=== PATIENT | female | born 1945 | race Caucasian/White ===

== ENCOUNTER → 2016-08-30 | Outpatient (REF) | payer OTHER ==
[2016-08-30 12:45] LABS: ALBUMIN 4.2 GM/DL (3.2-5.2); ALBUMIN/GLOBULIN RATIO 2.21 (1.00-1.93); ALKALINE PHOSPHATASE 59 U/L (45-117); ALT/SGPT 24 U/L (12-78); ANION GAP 6 MEQ/L (8-16); AST/SGOT 15 U/L (15-37); BILIRUBIN,TOTAL 0.5 MG/DL (0.2-1.0); BLOOD UREA NITROGEN 19 MG/DL (7-18); CALCIUM LEVEL 9.1 MG/DL (8.8-10.2); CARBON DIOXIDE LEVEL 30 MEQ/L (21-32); CHLORIDE LEVEL 108 MEQ/L (98-107); CHOLESTEROL LEVEL 196 MG/DL (<200); GLOMERULAR FILTRATION RATE > 60.0 (>45); GLUCOSE, FASTING 102 MG/DL (80-110); POTASSIUM SERUM 4.3 MEQ/L (3.5-5.1); SODIUM LEVEL 144 MEQ/L (136-145); TOTAL PROTEIN 6.1 GM/DL (6.4-8.2); TRIGLYCERIDES LEVEL 94 MG/DL (<150)
== END ==
LOC: M SFHCPLAZ 09:48
PROVIDERS: ATTEND Internal Medicine
DX: I10 Essential (primary) hypertension (principal); E78.00 Pure hypercholesterolemia, unspecified

== ENCOUNTER → 2016-10-23 | Outpatient (CLI) | payer OTHER ==
[~2016-10-23] MED LIST: ALEV220T26 PO; AMLO5TAB2 PO; ATOR1TAB19 PO; BIOT1CAP2 PO; CO Q200C PO; CO Q400C2 PO; COLA100C3 PO; LOSA100T36 PO; primrose PO
[2016-10-23 11:07] LABS: MEAN CORPUSCULAR HEMOGLOBIN 33.1 pg (27.0-33.0); MEAN CORPUSCULAR VOLUME 94.6 fl (80.0-96.0); RED CELL DISTRIBUTION WIDTH 12.5 % (11.5-14.5); WHITE BLOOD COUNT 8.6 K/mm3 (4.0-10.0)
[2016-10-23 11:31] LABS: INR 0.87
[2016-10-23 12:44] LABS: ALBUMIN 4.3 GM/DL (3.2-5.2); ALBUMIN/GLOBULIN RATIO 1.95 (1.00-1.93); ALKALINE PHOSPHATASE 63 U/L (45-117); ALT/SGPT 33 U/L (12-78); ANION GAP 9 MEQ/L (8-16); AST/SGOT 22 U/L (15-37); BILIRUBIN,TOTAL 0.4 MG/DL (0.2-1.0); BLOOD UREA NITROGEN 20 MG/DL (7-18); CALCIUM LEVEL 9.4 MG/DL (8.8-10.2); CARBON DIOXIDE LEVEL 26 MEQ/L (21-32); CHLORIDE LEVEL 107 MEQ/L (98-107); CREATININE FOR GFR 0.66 MG/DL (0.55-1.02); GLOMERULAR FILTRATION RATE > 60.0 (>45); GLUCOSE, FASTING 109 MG/DL (80-110); POTASSIUM SERUM 4.3 MEQ/L (3.5-5.1); SODIUM LEVEL 142 MEQ/L (136-145); TOTAL PROTEIN 6.5 GM/DL (6.4-8.2)
--- NOTE | 2016-10-24 02:31 | REP ---
Clinical: Arthritis . Comparison: None . Technique: PA and lateral. Findings: The mediastinum and cardiac silhouette are normal. The lung ruth are clear and without acute consolidation, effusion, or pneumothorax. The skeletal structures are intact and normal. Impression: 1. No acute cardiopulmonary process. Signed by Evin Palacios MD 10/24/2016 02:22 A
--- NOTE | 2016-10-24 07:08 | ECGEPIP ---
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
== END ==
LOC: M ADMPAT 09:26
PROVIDERS: ATTEND Orthopaedic Surgery
DX: M12.9 Arthropathy, unspecified (principal); Z01.818 Encounter for other preprocedural examination; Z79.899 Other long term (current) drug therapy

== ENCOUNTER 2016-11-06 05:45 | Inpatient (IN) | payer OTHER ==
[2016-10-23 10:36] VITALS: BP 152/68
--- NOTE | 2016-11-02 13:26 | HPE ---
DATE OF ADMISSION: 11/06/2016 ATTENDING PHYSICIAN: Dr. Stalin Hsieh CHIEF COMPLAINT: Right knee pain and stiffness. HISTORY: This a pleasant, 71-year-old female patient with progressively worsening right knee pain and stiffness. She has failed to improve with conservative management. She has pain with weightbearing activities and activities of daily living. She has elected for surgery for continued symptoms. She has consented for right total knee arthroplasty by Dr. Hsieh. X-rays notable for end-stage degenerative changes in the right knee. ALLERGIES: BENAZEPRIL. CURRENT MEDICATIONS: Include: - Advil 200 mg 1 tablet twice a day (She will discontinue that 5 days prior to surgery.) - Norvasc 5 mg 1 tablet once per day - losartan 100 mg 1 tablet once per day - atorvastatin 20 mg 1 tablet once per day - Biotin 1 mg 1 tablet once per day MEDICAL HISTORY: Includes hypertension, elevated cholesterol, elevated fasting glucose. PRIOR SURGERIES: Include tonsils and adenoids removed, appendectomy, (C) section, colonoscopy. SOCIAL HISTORY: She does not smoke. She occasionally uses alcohol. She is retired. FAMILY HISTORY: Noncontributory. REVIEW OF SYSTEMS: Denies fever or chills. Denies chest pain, shortness breath or cough. Denies difficulty breathing. Denies abdominal pain. Denies nausea or vomiting. Has persistent pain in her right knee with weightbearing activities. Exam today reveals a well-nourished, well-developed, alert female patient. She walks with a slight limping gait favoring her right side. Examination of the right knee reveals skin to be intact. Tenderness mainly medially. Patellar grind is irritable. Range of motion is near full with irritability at the extreme range of motion. No irritability with hip range of motion. The right leg is intact to light touch. Neck is supple without adenopathy or jugular venous distention (JVD). Lungs are clear to auscultation, without rales or wheeze. Heart: Regular rate and rhythm. Abdomen: Bowel sounds are present. Current vital signs: Height 62 inches, weight 152 pounds. Temperature 98.8, pulse 72, respirations 16, blood pressure 142/82. IMPRESSION: Symptomatic osteoarthritis of her right knee. LABORATORY DATA: Sedimentation rate of 5. Urinalysis within normal limits. Nasal cultures normal trever. Urine culture no growth. PT 11.9, INR 0.87. Glucose 109, BUN 28, creatinine 0.66, potassium 4.3, sodium 142. WBC count 8.6, red blood cell count 4.1, hemoglobin 13.6, hematocrit 38.8. Chest x-ray: No acute cardiopulmonary process noted. EKG: Sinus rhythm with occasional PVC. Urinalysis within normal limits. PLAN: She has consented for right total knee arthroplasty by Dr. Hsieh. LUCY
[~2016-11-06] VITALS: Ht 157.5 cm; Wt 70.3 kg
[2016-11-06] VITALS (7 sets, daily range): BP systolic 118–181; BP diastolic 59–86
[2016-11-06] MEDS ORDERED: ACETAMINOPHEN 500 MG TAB PO ONE (06:00)
[2016-11-06] MEDS ORDERED: LR 1,000 ML IV SCH ×3 (06:00→11:15)
[2016-11-06] MEDS ORDERED: TRANEXAMIC ACID 100 MG/ML 10ML VIAL As Ordered ONE (06:12)
[2016-11-06] MEDS ORDERED: ceFAZolin 1GM INJ (J0690) As Ordered ONE (06:12)
[2016-11-06] MEDS ORDERED: BUPIVACAINE LIPOSOME/PF 1.3% 20 ML VIAL (13.3MG/ML)(EXPAREL) As Ordered ONE (06:13)
[2016-11-06] MEDS ORDERED: EPINEPHrine INJ 1 MG/ML 1ML AMP As Ordered ONE (06:13)
[2016-11-06] MEDS: MIDAZOLAM INJ 2 MG/2 ML VIAL (J2250) IV SCH ×2 (07:15→07:19)
[2016-11-06] MEDS ORDERED: fentaNYL 100 MCG/2 ML INJECTION (J3010) As Ordered ONE (07:30)
[2016-11-06] MEDS ORDERED: fentaNYL 100 MCG/2 ML INJECTION (J3010) IV ONE ×2 (07:30→07:45)
[2016-11-06] MEDS ORDERED: MIDAZOLAM INJ 2 MG/2 ML VIAL (J2250) As Ordered ONE ×2 (07:30→07:46)
[2016-11-06] MEDS ORDERED: MIDAZOLAM INJ 2 MG/2 ML VIAL (J2250) IV SCH (07:45)
[2016-11-06] MEDS ORDERED: PROPOFOL 200 MG/20 ML VIAL As Ordered ONE (07:46)
[2016-11-06] MEDS ORDERED: ePHEDrine SULFATE 25 MG/5 ML(5MG/ML) SYRINGE As Ordered ONE (08:23)
[2016-11-06] MEDS ORDERED: NALOXONE INJ 0.4 MG/1 ML VIAL (J2310) IV PRN (09:45)
[2016-11-06] MEDS ORDERED: diphenhydrAMINE INJ 50MG/ML VIAL (J1200) IV PRN (09:45)
[2016-11-06] MEDS ORDERED: NALBUPHINE HCL 10 MG/ML AMP (J2300) IV PRN (09:45)
[2016-11-06] MEDS ORDERED: EPIDURAL/PCA KEYS XX PRN (09:45)
[2016-11-06] MEDS ORDERED: ONDANSETRON 4MG/2ML VIAL (J2405) IV PRN ×2 (09:45→10:15)
[2016-11-06] MEDS ORDERED: MORPHINE 1MG/ML IN 0.9% NACL 100ML IV BAG IV PRN (09:45)
[2016-11-06] MEDS ORDERED: ACETAMINOPHEN TAB 650MG DOSE (2X325MG) PO PRN ×2 (10:00→11:15)
[2016-11-06] MEDS ORDERED: FLEET ENEMA PR PRN ×2 (10:00→11:15)
[2016-11-06] MEDS ORDERED: fentaNYL 100 MCG/2 ML INJECTION (J3010) IV PRN (10:15)
[2016-11-06] MEDS: LR 1,000 ML IV SCH ×2 (10:19→23:52)
[2016-11-06] MEDS ORDERED: ROPIvacaine 0.5% 30 ML INJECTION (J2795) ONE (12:03)
[2016-11-06] MEDS ORDERED: dexameTHASONE 10 MG/1 ML VIAL PRES.FREE (J1100) ONE (12:03)
--- NOTE | 2016-11-06 16:33 | IPNPDOC ---
Subjective Date Seen The patient was seen on 11/06/16. Subjective Chief Complaint/HPI The patient is a 71-year-old female admitted with a reason for visit of Right Knee Arthritis. Events since last encounter Feeling well post operatively, no complaints, pain controlled Constitutional: Denies: Chills, Fever Pulmonary: Denies: Dyspnea, Cough Cardiovascular: Denies: Chest Pain Gastrointestinal: Denies: Nausea, Vomiting, Abdominal Pain Objective Physical Examination General Exam: Positive: Alert, Cooperative, No Acute Distress Eye Exam: Negative: Sclera icteric ENT Exam: Positive: Mucous membr. moist/pink Chest Exam: Positive: Diminished, Negative: Rales, Rhonchi, Wheezing Heart Exam: Positive: Rate Normal, Regular Rhythm, Normal S1, Normal S2 Abdomen Exam: Positive: BS Hypoactive, Soft, Negative: Tenderness Assessment /Plan Problems (1) Osteoarthritis Problem Text: POD#0 knee replacement pain management, gi regimen, activity, dvt prophylaxis per ortho (2) HTN (hypertension) Problem Text: BP elevated likely secondary to pain continue norvasc hold arb (3) Hypercholesteremia Problem Text: continue statin Plan/VTE VTE Prophylaxis Ordered?: Yes VS, I&O, 24H, Fishbone Vital Signs/I&O Vital Signs Date Time Temp Pulse Resp B/P (MAP) Pulse Ox O2 Delivery O2 Flow Rate FiO2 11/06/16 14:30 97.3 72 16 164/76 (105) 98 Nasal Cannula 2.0 CLEM WALTER MD Nov 06, 2016 16:33
[2016-11-06] MEDS ORDERED: WARFARIN SOD 5 MG TAB PO SCH ×2 (17:00)
[2016-11-06] MEDS ORDERED: ONDANSETRON 4MG/2ML VIAL (J2405) IV ONE (21:00)
--- NOTE | 2016-11-06 23:17 | RO ---
DATE OF PROCEDURE: 11/06/2016 PREPROCEDURE DIAGNOSIS: Right knee degenerative arthritis. POSTPROCEDURE DIAGNOSIS: Right knee degenerative arthritis. PROCEDURE: Right total knee arthroplasty using a size 2.5 femoral component and a size 2 tibial tray with a 10 mm rotating platform polyethylene insert and a 32 mm polyethylene button. All components were cemented. Prosthesis was made by [employer]; it was a PFC knee. It was a cruciate-retaining femoral component. SURGEON: Dr. Cristina Hsieh TERMITE CONTROL REPRESENTATIVE: Mr. Isaias Jessica ANESTHESIA: Spinal with right femoral nerve block and Exparel long-acting Marcaine. COMPLICATIONS: None. ESTIMATED BLOOD LOSS: Less than 20 mL. SPECIMENS: Joint surface. DESCRIPTION OF PROCEDURE: Antibiotics were given intravenously preoperatively, then successful spinal anesthetic was induced and a right femoral nerve block was induced. Tourniquet was placed on the right upper thigh and not inflated. The right lower extremity was prepped and draped in the usual sterile fashion. Then, the leg was elevated, then after appropriate time out and we confirmed we were doing a right total knee arthroplasty, the tourniquet was inflated. A longitudinal incision was made for a medial parapatellar approach to the knee. Bovie cautery was used to coagulate crossing vessels. Subperiosteal dissection around the proximal and medial portion of the tibia was performed and then we released the anterior horn of the lateral meniscus. Subperiosteal dissection around the proximal and lateral portion of the tibial plateau was provided and the patella was easily everted and the knee was flexed. Drill was placed down the center of the femoral canal, followed by the intramedullary ted and with a distal femoral cutting jig set at 5-degree valgus cut for a right knee at 10 mm resection level. It was pinned into position, distal femoral cut performed. AP sizing jig measured right on the money at a 2.5 size femoral component. The 3-degree external rotation block was applied, the 4-in-1 block applied, then we performed the anterior and posterior Chamfer cuts, taking great care to protect the surrounding soft tissues. We then exposed the proximal tibia. We used the extramedullary guide to estimate being parallel to the mechanical axis of the tibia. We referenced off the medial tibial condyle at 4 mm resection level. We then pinned the block into position and then used the extramedullary ted to ensure that we appeared to be parallel to the mechanical axis of the tibia. We then performed the proximal tibia osteotomy. We then placed the lamina mixing machine operator medially and performed a completion lateral meniscectomy, debridement of the posterolateral osteophytes. Then, we placed the lamina mixing machine operator laterally and performed a completion medial meniscectomy, debridement of the posteromedial osteophytes. The spacer blocks were then placed and a 10 block fit nicely with good balance to varus/valgus stress testing, both in flexion and in extension and the flexion and extension spaces seemed to be quite symmetric, thus we felt this was the appropriate size components to use. We then exposed the proximal tibia, sized for a size 2 tray and that was pinned into position followed by the reamer and the broach. Polyethylene was placed, followed by the femoral component and then we brought the knee into extension. Again, she had very good stability. We everted the patella, performed a patellar osteotomy, sized for a 32 mm button and the lug holes were drilled. The patellofemoral tracking with the trials in place was anatomic. We then drilled the lug holes for the femur, removed all of the trial components, prepared the bony surfaces for cementing while my nutritional assistant, Mr. Jessica, mixed the cement on the back table. We copiously irrigated. Mr. Jessica was also critical to the success of the procedure by helping in many other ways to manipulate the knee with appropriate soft tissue retraction, helped to close the wound, helped me to prepare the patient for surgery. Once all the bony surfaces were thoroughly dried, we cemented the tibial tray, removed the excess cement, placed the polyethylene, then cemented the femoral component, removed excess cement, brought the knee into extension and cemented the patellar button, removed excess cement, held this position until the cement had hardened. The Exparel long-acting anesthetic was placed in the subperiosteal tissues around the femur and the tibia, as well as around the patella and then the edges of the quadriceps tendon and the joint capsule. We applied this while we were waiting for the cement to harden. We also irrigated the knee while we were waiting for the cement to harden and then also instilled the tranexamic acid. The capsule was then closed with a combination of #1 PDS sutures, then a running double-armed Stratafix. Then, we released the tourniquet, irrigated it, then closed the deep subdermal tissues with interrupted #2-0 PDS sutures, skin was closed with fabiano, covered by Adaptic dry sterile bulky dressing. The tourniquet was then released, and she was then transferred to the recovery room in stable condition. There were no intraoperative complications.
[2016-11-07 06:00] VITALS: BP 160/77
[2016-11-07] MEDS ORDERED: PERCOCET 5MG/325MG TAB PO PRN (07:00)
[2016-11-07 07:34] LABS: MEAN CORPUSCULAR HEMOGLOBIN 32.5 pg (27.0-33.0); MEAN CORPUSCULAR HGB CONC 33.6 g/dl (32.0-36.5); MEAN CORPUSCULAR VOLUME 96.5 fl (80.0-96.0); RED CELL DISTRIBUTION WIDTH 12.9 % (11.5-14.5); WHITE BLOOD COUNT 17.3 K/mm3 (4.0-10.0)
[2016-11-07 07:41] LABS: INR 1.08
[2016-11-07] MEDS: SENOKOT S TAB PO SCH ×2 (08:45→21:39)
[2016-11-07] MEDS: LOSARTAN 50 MG TAB PO SCH (08:45)
[2016-11-07] MEDS: MOM 30ML SUSPENSION UDC PO SCH (08:45)
[2016-11-07] MEDS: ATORVASTATIN 20 MG TAB PO SCH (08:46)
[2016-11-07] MEDS: amLODIPine 5 MG TAB PO SCH (08:46)
[2016-11-07] MEDS: MIRALAX *UNIT DOSE* 17GM PACKET PO SCH (08:47)
[2016-11-07] MEDS: PERCOCET 5MG/325MG TAB PO PRN ×3 (08:48→18:04)
[2016-11-07 10:00] VITALS: BP 173/79
--- NOTE | 2016-11-07 11:19 | REP ---
Right knee two views AP and lateral projections: There are no comparison studies. There is a total hip arthroplasty with the components tightly applied and in satisfactory positions alignment in both projections. Skin fabiano are incidentally noted. Signed by Jeremy Freedman MD 11/07/2016 11:10 A
[2016-11-07] MEDS: ONDANSETRON 4 MG TAB (S0181) PO PRN ×2 (12:35→18:04)
[2016-11-07 14:00] VITALS: BP 177/81
[2016-11-07] MEDS ORDERED: WARFARIN SOD 5 MG TAB PO SCH (17:00)
[2016-11-07 22:00] VITALS: BP 160/68
[2016-11-07 23:33] VITALS: O2SAT 96
[2016-11-08] MEDS: PERCOCET 5MG/325MG TAB PO PRN ×3 (05:23→09:28)
[2016-11-08 06:00] VITALS: BP 170/72
[2016-11-08 07:12] LABS: INR 1.65; MEAN CORPUSCULAR HEMOGLOBIN 32.3 pg (27.0-33.0); MEAN CORPUSCULAR HGB CONC 33.7 g/dl (32.0-36.5); RED CELL DISTRIBUTION WIDTH 12.9 % (11.5-14.5); WHITE BLOOD COUNT 15.3 K/mm3 (4.0-10.0)
[2016-11-08] MEDS ORDERED: COUM2.5T11 PO (08:52)
[2016-11-08] MEDS ORDERED: ZOFR20TA PO (08:52)
[2016-11-08] MEDS ORDERED: PERC5TAB6 PO (08:52)
[2016-11-08] MEDS: SENOKOT S TAB PO SCH (09:00)
[2016-11-08] MEDS: LOSARTAN 50 MG TAB PO SCH (09:27)
[2016-11-08] MEDS: MIRALAX *UNIT DOSE* 17GM PACKET PO SCH (09:27)
[2016-11-08] MEDS: ATORVASTATIN 20 MG TAB PO SCH (09:27)
[2016-11-08] MEDS: MOM 30ML SUSPENSION UDC PO SCH (09:27)
[2016-11-08 09:28] VITALS: BP 170/72
[2016-11-08] MEDS: amLODIPine 5 MG TAB PO SCH (09:28)
--- NOTE | 2016-11-10 11:49 | DSES ---
DATE OF ADMISSION: 11/06/2016 DATE OF DISCHARGE: 11/08/2016 ATTENDING PHYSICIAN: Dr. Hsieh. ADMITTING DIAGNOSIS: Right knee degenerative arthritis. OTHER DIAGNOSES: Hypertension. Hyperlipidemia. Impaired fasting glucose. DISCHARGE DIAGNOSIS: Right knee degenerative arthritis status post right total knee arthroplasty. HISTORY OF PRESENT ILLNESS: Patient is a 71-year-old female with continuing right knee pain and stiffness. She continues with pain with any weight bearing activities and activities of daily living. She failed to improve with conservative measures so she has elevated for right total knee arthroplasty with Dr. Hsieh. OPERATION PERFORMED: Right total knee arthroplasty. HOSPITAL COURSE: The patient underwent a right total knee arthroplasty under spinal anesthesia which was uneventful. Her hospital course was without complication and she was up with physical therapy per their protocol, weight bearing as tolerated on the right lower extremity. Patient was discharged on oral pain medications and will resume her preoperative medications and diet. Instructions were for her to be weight bearing as tolerated. She will also use her thromboembolic deterrent stockings and take her Coumadin for 30 days postoperatively to present deep venous thrombosis. She will followup in our office in 12-14 days for wound check and staple removal. She is encouraged to contact our office sooner if there is any increased pain, drainage, bleeding, redness, numbness or tingling in her extremity, fever greater than 101 degrees or any other concerns. Please see medical record for additional details.
== END 2016-11-08 12:15 | disposition home health service (06) | DRG 470 ==
LOC: M OR 05:45 → M MS5PR 10:20
PROVIDERS: ADMIT Orthopaedic Surgery; ATTEND Orthopaedic Surgery
PROC: 0SRC0J9 Replacement of Right Knee Joint with Synthetic Substitute, Cemented, Open Approach (ICD-10-PCS; principal; 2016-11-06 07:30)
DX: M17.11 Unilateral primary osteoarthritis, right knee (principal); Z79.899 Other long term (current) drug therapy; I10 Essential (primary) hypertension; E78.00 Pure hypercholesterolemia, unspecified

== ENCOUNTER → 2017-09-04 | Outpatient (REF) | payer OTHER ==
[2017-09-04 12:40] LABS: ALBUMIN 4.3 GM/DL (3.2-5.2); ALBUMIN/GLOBULIN RATIO 1.95 (1.00-1.93); ALKALINE PHOSPHATASE 57 U/L (45-117); ALT/SGPT 21 U/L (12-78); ANION GAP 6 MEQ/L (8-16); AST/SGOT 17 U/L (7-37); BILIRUBIN,TOTAL 0.6 MG/DL (0.2-1.0); BLOOD UREA NITROGEN 18 MG/DL (7-18); CALCIUM LEVEL 9.2 MG/DL (8.8-10.2); CARBON DIOXIDE LEVEL 28 MEQ/L (21-32); CHLORIDE LEVEL 109 MEQ/L (98-107); CHOLESTEROL LEVEL 210 MG/DL (<200); CHOLESTEROL RISK RATIO 3.088 (<5); CREATININE FOR GFR 0.67 MG/DL (0.55-1.30); GLOMERULAR FILTRATION RATE > 60.0 (>39); GLUCOSE, FASTING 90 MG/DL (70-100); HDL CHOLESTEROL 68 MG/DL (>40); LDL CHOLESTEROL 116.4 MG/DL (<100); MAGNESIUM LEVEL 2.4 MG/DL (1.8-2.4); NON-HDL-C 142 MG/DL; POTASSIUM SERUM 4.3 MEQ/L (3.5-5.1); SODIUM LEVEL 143 MEQ/L (136-145); TOTAL PROTEIN 6.5 GM/DL (6.4-8.2); TRIGLYCERIDES LEVEL 128 MG/DL (<150)
[2017-09-04 13:04] LABS: MALB URINE SIEMENS 11.3 MG/L; MAU/CREAT RATIO 9.2 MCG/MG (0.0-30.0)
[2017-09-04 14:32] LABS: ESTIMATED AVERAGE GLUCOSE 111 MG/DL (60-110); HEMOGLOBIN A1c 5.5 %
== END ==
LOC: M SFHCPLAZ 07:54
DX: I10 Essential (primary) hypertension (principal); R73.01 Impaired fasting glucose; E78.00 Pure hypercholesterolemia, unspecified
CPT/HCPCS: 83735

== ENCOUNTER 2017-12-18 09:56 | Day surgery (SDC) | payer OTHER ==
[2017-12-18] MEDS: NS 1,000 ML IV (10:26)
[2017-12-18] MEDS ORDERED: LIDOCAINE 2% INJ 100 MG/5 ML SDV (FOR ANES.) As Ordered (11:46)
[2017-12-18] MEDS ORDERED: PROPOFOL 200 MG/20 ML VIAL As Ordered (11:46)
== END 2017-12-18 12:15 | disposition home or self-care (01) ==
LOC: M OPP 09:56
DX: Z12.11 Encounter for screening for malignant neoplasm of colon (principal); K64.0 First degree hemorrhoids; K57.30 Diverticulosis of large intestine without perforation or abscess without bleeding; I10 Essential (primary) hypertension; E78.5 Hyperlipidemia, unspecified; M19.90 Unspecified osteoarthritis, unspecified site; Z85.828 Personal history of other malignant neoplasm of skin; Z96.651 Presence of right artificial knee joint; Z87.891 Personal history of nicotine dependence; Z88.8 Allergy status to other drugs, medicaments and biological substances; Z91.048 Other nonmedicinal substance allergy status; Z79.899 Other long term (current) drug therapy; Z80.3 Family history of malignant neoplasm of breast
CPT/HCPCS: G0121

== ENCOUNTER → 2017-12-28 | Outpatient (CLI) | payer OTHER ==
[2017-12-28 09:32] LABS: HEMATOCRIT 40.2 % (36.0-47.0); HEMOGLOBIN 13.4 g/dl (12.0-15.5); MEAN CORPUSCULAR HEMOGLOBIN 31.7 pg (27.0-33.0); MEAN CORPUSCULAR HGB CONC 33.3 g/dl (32.0-36.5); PLATELET COUNT, AUTOMATED 244 10^3/uL (150-450); RED BLOOD COUNT 4.23 10^6/uL (4.00-5.40); RED CELL DISTRIBUTION WIDTH 13.2 % (11.5-14.5); WHITE BLOOD COUNT 9.2 10^3/uL (4.0-10.0)
[2017-12-28 09:41] LABS: INR 0.91; PROTHROMBIN TIME 12.3 SECONDS (12.1-14.4)
[2017-12-28 09:57] LABS: ALBUMIN 4.4 GM/DL (3.2-5.2); ALBUMIN/GLOBULIN RATIO 1.83 (1.00-1.93); ALKALINE PHOSPHATASE 60 U/L (45-117); ALT/SGPT 22 U/L (12-78); ANION GAP 7 MEQ/L (8-16); AST/SGOT 18 U/L (7-37); BILIRUBIN,TOTAL 0.4 MG/DL (0.2-1.0); BLOOD UREA NITROGEN 20 MG/DL (7-18); CALCIUM LEVEL 9.3 MG/DL (8.8-10.2); CARBON DIOXIDE LEVEL 29 MEQ/L (21-32); CHLORIDE LEVEL 109 MEQ/L (98-107); CREATININE FOR GFR 0.71 MG/DL (0.55-1.30); GLOMERULAR FILTRATION RATE > 60.0 (>39); GLUCOSE, FASTING 104 MG/DL (70-100); POTASSIUM SERUM 4.5 MEQ/L (3.5-5.1); SODIUM LEVEL 145 MEQ/L (136-145); TOTAL PROTEIN 6.8 GM/DL (6.4-8.2)
[2017-12-28 10:00] LABS: ERYTHROCYTE SEDIMENTATION RATE 5 mm/hr (0-30)
== END ==
LOC: M LAB 08:24
DX: Z01.818 Encounter for other preprocedural examination (principal); M17.12 Unilateral primary osteoarthritis, left knee
CPT/HCPCS: 71046

== ENCOUNTER 2018-01-21 05:40 | Inpatient (IN) | payer OTHER ==
[2018-01-21] MEDS ORDERED: dexameTHASONE 10 MG/1 ML VIAL PRES.FREE (J1100) (05:41)
[2018-01-21] MEDS ORDERED: ROPIvacaine 0.5% 30 ML INJECTION (J2795 PER 1MG) (05:41)
[2018-01-21] MEDS ORDERED: EPINEPHrine INJ 1 MG/ML 1ML AMP (05:41)
[2018-01-21] MEDS ORDERED: LIDOCAINE 1% MDV 20ML VIAL (05:41)
[2018-01-21] MEDS ORDERED: BUPIVACAINE HCL 0.25% 10 ML VIAL As Ordered (05:56)
[2018-01-21] MEDS ORDERED: EPINEPHrine INJ 1 MG/ML 1ML AMP As Ordered (05:57)
[2018-01-21] MEDS ORDERED: BUPIVACAINE LIPOSOME/PF 1.3% 20 ML VIAL (13.3MG/ML)(EXPAREL) As Ordered (05:57)
[2018-01-21] MEDS ORDERED: LR 1,000 ML IV ×2 (06:45→08:00)
[2018-01-21] MEDS ORDERED: fentaNYL 100 MCG/2 ML INJECTION (J3010) As Ordered ×2 (06:47→07:47)
[2018-01-21] MEDS ORDERED: MIDAZOLAM INJ 2 MG/2 ML VIAL (J2250) As Ordered ×2 (06:47→07:47)
[2018-01-21] MEDS: fentaNYL 100 MCG/2 ML INJECTION (J3010) IV ×2 (07:08→07:14)
[2018-01-21] MEDS: MIDAZOLAM INJ 2 MG/2 ML VIAL (J2250) IV ×2 (07:08→07:14)
[2018-01-21] MEDS ORDERED: ONDANSETRON 4MG/2ML VIAL (J2405) As Ordered (07:47)
[2018-01-21] MEDS ORDERED: LIDOCAINE 2% INJ 100 MG/5 ML SDV (FOR ANES.) As Ordered (07:47)
[2018-01-21] MEDS ORDERED: PROPOFOL 200 MG/20 ML VIAL As Ordered (07:47)
[2018-01-21] MEDS: ACETAMINOPHEN 500 MG TAB PO (08:00)
[2018-01-21] MEDS: TRANEXAMIC ACID 100 MG/ML 10ML VIAL As Ordered (08:12)
[2018-01-21] MEDS: ceFAZolin 1GM INJ (J0690 PER 500MG) As Ordered (08:13)
[2018-01-21] MEDS ORDERED: MORPHINE 1MG/ML IN 0.9% NACL 100ML IV BAG As Ordered (09:18)
[2018-01-21] MEDS ORDERED: diphenhydrAMINE INJ 50MG/ML VIAL (J1200) IV (09:30)
[2018-01-21] MEDS ORDERED: NALOXONE INJ 0.4 MG/1 ML VIAL (J2310) IV (09:30)
[2018-01-21] MEDS ORDERED: EPIDURAL/PCA KEYS XX (09:30)
[2018-01-21] MEDS: MORPHINE 1MG/ML IN 0.9% NACL 100ML IV BAG IV (09:30)
[2018-01-21] MEDS ORDERED: NALBUPHINE HCL 10 MG/ML AMP (J2300) IV (09:30)
[2018-01-21] MEDS: LR 1,000 ML IV ×3 (09:45→22:15)
[2018-01-21] MEDS ORDERED: fentaNYL 100 MCG/2 ML INJECTION (J3010) IV (09:45)
[2018-01-21] MEDS ORDERED: PERCOCET 5MG/325MG TAB PO (09:45)
[2018-01-21] MEDS ORDERED: FLEET ENEMA PR (09:45)
[2018-01-21] MEDS ORDERED: MEPERIDINE INJ 25 MG/ML VIAL (J2175) IV (09:45)
[2018-01-21] MEDS ORDERED: ONDANSETRON 4MG/2ML VIAL (J2405) IV (09:45)
[2018-01-21] MEDS ORDERED: BUPIVACAINE/DEXTROSE 0.75% 2 ML AMP As Ordered (09:54)
[2018-01-21] MEDS ORDERED: METOCLOPRAMIDE INJ 10MG/2ML VIAL (J2765) As Ordered (11:28)
[2018-01-21] MEDS: METOCLOPRAMIDE INJ 10MG/2ML VIAL (J2765) IV (11:30)
[2018-01-21] MEDS: LOSARTAN 50 MG TAB PO (14:26)
[2018-01-21] MEDS: ONDANSETRON 4MG/2ML VIAL (J2405) IV (19:35)
[2018-01-21] MEDS: ATORVASTATIN 20 MG TAB PO (21:10)
[2018-01-21] MEDS: DOCUSATE SODIUM 100 MG CAP PO (21:11)
[2018-01-22] MEDS: ONDANSETRON 4MG/2ML VIAL (J2405) IV (01:05)
[2018-01-22] MEDS ORDERED: ONDANSETRON 4 MG TAB (S0181) PO (06:45)
[2018-01-22 07:00] LABS: HEMATOCRIT 34.5 % (36.0-47.0); HEMOGLOBIN 11.5 g/dl (12.0-15.5); MEAN CORPUSCULAR HEMOGLOBIN 31.5 pg (27.0-33.0); MEAN CORPUSCULAR HGB CONC 33.3 g/dl (32.0-36.5); MEAN CORPUSCULAR VOLUME 94.5 fl (80.0-96.0); PLATELET COUNT, AUTOMATED 205 10^3/uL (150-450); RED BLOOD COUNT 3.65 10^6/uL (4.00-5.40); RED CELL DISTRIBUTION WIDTH 13.6 % (11.5-14.5); WHITE BLOOD COUNT 13.2 10^3/uL (4.0-10.0)
[2018-01-22 07:19] LABS: ANION GAP 5 MEQ/L (8-16); BLOOD UREA NITROGEN 12 MG/DL (7-18); CALCIUM LEVEL 8.7 MG/DL (8.8-10.2); CARBON DIOXIDE LEVEL 30 MEQ/L (21-32); CHLORIDE LEVEL 102 MEQ/L (98-107); CREATININE FOR GFR 0.75 MG/DL (0.55-1.30); GLOMERULAR FILTRATION RATE > 60.0 (>39); GLUCOSE, FASTING 145 MG/DL (70-100); SODIUM LEVEL 137 MEQ/L (136-145)
[2018-01-22] MEDS: SENOKOT S TAB PO ×2 (09:48→21:38)
[2018-01-22] MEDS: MIRALAX *UNIT DOSE* 17GM PACKET PO (09:48)
[2018-01-22] MEDS: amLODIPine 5 MG TAB PO (09:48)
[2018-01-22] MEDS: MOM 30ML SUSPENSION UDC PO (09:48)
[2018-01-22] MEDS: LOSARTAN 50 MG TAB PO (09:48)
[2018-01-22] MEDS: PERCOCET 5MG/325MG TAB PO ×4 (09:49→22:16)
[2018-01-22] MEDS: RIVAROXABAN 10 MG TAB (XARELTO) PO (17:20)
[2018-01-22] MEDS: ATORVASTATIN 20 MG TAB PO (21:38)
[2018-01-22] MEDS: DOCUSATE SODIUM 100 MG CAP PO (21:39)
[2018-01-23] MEDS: ACETAMINOPHEN TAB 650MG DOSE (2X325MG) PO ×2 (04:04→07:43)
[2018-01-23 07:20] LABS: HEMATOCRIT 37.6 % (36.0-47.0); HEMOGLOBIN 12.6 g/dl (12.0-15.5); MEAN CORPUSCULAR HGB CONC 33.5 g/dl (32.0-36.5); MEAN CORPUSCULAR VOLUME 92.6 fl (80.0-96.0); PLATELET COUNT, AUTOMATED 219 10^3/uL (150-450); RED BLOOD COUNT 4.06 10^6/uL (4.00-5.40); RED CELL DISTRIBUTION WIDTH 13.5 % (11.5-14.5); WHITE BLOOD COUNT 13.5 10^3/uL (4.0-10.0)
[2018-01-23 07:59] LABS: ANION GAP 7 MEQ/L (8-16); BLOOD UREA NITROGEN 8 MG/DL (7-18); CALCIUM LEVEL 8.7 MG/DL (8.8-10.2); CARBON DIOXIDE LEVEL 29 MEQ/L (21-32); CHLORIDE LEVEL 102 MEQ/L (98-107); CREATININE FOR GFR 0.51 MG/DL (0.55-1.30); GLOMERULAR FILTRATION RATE > 60.0 (>39); GLUCOSE, FASTING 120 MG/DL (70-100); POTASSIUM SERUM 3.8 MEQ/L (3.5-5.1); SODIUM LEVEL 138 MEQ/L (136-145)
[2018-01-23] MEDS: LOSARTAN 50 MG TAB PO (09:43)
[2018-01-23] MEDS: MIRALAX *UNIT DOSE* 17GM PACKET PO (09:43)
[2018-01-23] MEDS: MOM 30ML SUSPENSION UDC PO (09:44)
[2018-01-23] MEDS: SENOKOT S TAB PO (09:44)
[2018-01-23] MEDS: amLODIPine 5 MG TAB PO (09:44)
== END 2018-01-23 10:30 | disposition home health service (06) | DRG 470 ==
LOC: M SDC 05:40 → M RR INP 07:20 → M MS5PR 12:35
PROC: 0SRD0J9 Replacement of Left Knee Joint with Synthetic Substitute, Cemented, Open Approach (ICD-10-PCS; principal; 2018-01-21 07:30)
DX: M17.12 Unilateral primary osteoarthritis, left knee (principal); I10 Essential (primary) hypertension; E78.5 Hyperlipidemia, unspecified; R73.01 Impaired fasting glucose; Z88.8 Allergy status to other drugs, medicaments and biological substances; Z88.5 Allergy status to narcotic agent; Z79.899 Other long term (current) drug therapy; Z96.651 Presence of right artificial knee joint; Z87.891 Personal history of nicotine dependence; Z91.048 Other nonmedicinal substance allergy status; Z88.6 Allergy status to analgesic agent

== ENCOUNTER → 2018-03-19 | Outpatient (REF) | payer OTHER ==
[2018-03-19 11:24] LABS: ALBUMIN 4.3 GM/DL (3.2-5.2); ALBUMIN/GLOBULIN RATIO 1.87 (1.00-1.93); ALKALINE PHOSPHATASE 63 U/L (45-117); ALT/SGPT 20 U/L (12-78); ANION GAP 11 MEQ/L (8-16); AST/SGOT 13 U/L (7-37); BILIRUBIN,TOTAL 0.5 MG/DL (0.2-1.0); BLOOD UREA NITROGEN 20 MG/DL (7-18); CALCIUM LEVEL 9.4 MG/DL (8.8-10.2); CARBON DIOXIDE LEVEL 25 MEQ/L (21-32); CHLORIDE LEVEL 106 MEQ/L (98-107); CHOLESTEROL LEVEL 198 MG/DL (<200); CHOLESTEROL RISK RATIO 2.675 (<5); CREATININE FOR GFR 0.73 MG/DL (0.55-1.30); GLOMERULAR FILTRATION RATE > 60.0 (>39); GLUCOSE, FASTING 98 MG/DL (70-100); HDL CHOLESTEROL 74 MG/DL (>40); LDL CHOLESTEROL 103 MG/DL (<100); MAGNESIUM LEVEL 2.2 MG/DL (1.8-2.4); NON-HDL-C 124 MG/DL; POTASSIUM SERUM 4.5 MEQ/L (3.5-5.1); SODIUM LEVEL 142 MEQ/L (136-145); TOTAL PROTEIN 6.6 GM/DL (6.4-8.2); TRIGLYCERIDES LEVEL 103 MG/DL (<150)
[2018-03-20 10:34] LABS: HEP C VIRUS AB SCREEN MEDICARE < 0.0 INDEX (<0.8)
== END ==
LOC: M SFHCPLAZ 08:04
DX: I10 Essential (primary) hypertension (principal); E78.00 Pure hypercholesterolemia, unspecified; Z11.59 Encounter for screening for other viral diseases
CPT/HCPCS: 83735

== ENCOUNTER → 2018-09-27 | Outpatient (REF) | payer MEDICARE ==
[~2018-09-27] MED LIST changes: +ACET1TAB16 PO; -AMLO5TAB2 PO; +AMLO5TAB6 PO; -CO Q200C PO; +CO Q200C10 PO; -COLA100C3 PO; +COLA100C5 PO; +COUM2.5T17 PO; -LOSA100T36 PO; +LOSA100T50 PO; +PERC5TAB12 PO; +XARE10TA PO; +ZOFR4TAB16 PO
[2018-09-27 10:09] LABS: ALBUMIN 3.9 GM/DL (3.2-5.2); ALT/SGPT 20 U/L (12-78); BILIRUBIN,TOTAL 0.5 MG/DL (0.2-1.0); BLOOD UREA NITROGEN 15 MG/DL (7-18); CALCIUM LEVEL 9.6 MG/DL (8.8-10.2); CARBON DIOXIDE LEVEL 28 MEQ/L (21-32); CHLORIDE LEVEL 107 MEQ/L (98-107); CHOLESTEROL LEVEL 224 MG/DL (<200); CHOLESTEROL RISK RATIO 2.947 (<5); CREATININE FOR GFR 0.81 MG/DL (0.55-1.30); GLOMERULAR FILTRATION RATE > 60.0 (>39); GLUCOSE, FASTING 96 MG/DL (70-100); HDL CHOLESTEROL 76 MG/DL (>40); LDL CHOLESTEROL 126 MG/DL (<100); MAGNESIUM LEVEL 1.9 MG/DL (1.8-2.4); NON-HDL-C 148 MG/DL; POTASSIUM SERUM 4.5 MEQ/L (3.5-5.1); SODIUM LEVEL 140 MEQ/L (136-145); TOTAL PROTEIN 6.5 GM/DL (6.4-8.2); TRIGLYCERIDES LEVEL 111 MG/DL (<150)
[2018-09-27 10:36] LABS: HEMOGLOBIN A1c 5.7 %
== END ==
LOC: M SFHCPLAZ 08:01
PROVIDERS: ATTEND Internal Medicine
DX: I10 Essential (primary) hypertension (principal); R73.01 Impaired fasting glucose; E78.00 Pure hypercholesterolemia, unspecified

== ENCOUNTER → 2018-10-04 | Outpatient (REF) | payer MEDICARE ==
[2018-10-04 12:27] LABS: FREE T4 0.99 NG/DL (0.76-1.46); THYROID STIMULATING HORMONE 2.86 uIU/ML (0.358-3.740)
== END ==
LOC: M SFHCPLAZ 09:19
PROVIDERS: ATTEND Internal Medicine
DX: L65.9 Nonscarring hair loss, unspecified (principal)
CPT/HCPCS: 36415; 84439; 84443; G0463

== ENCOUNTER → 2020-02-13 | Outpatient (REF) | payer MEDICARE ==
[~2020-02-13] MED LIST changes: +AMLO1TAB24 PO; -AMLO5TAB6 PO
[2020-02-13 14:19] LABS: ALBUMIN 4.2 GM/DL (3.2-5.2); ALT/SGPT 22 U/L (12-78); BILIRUBIN,TOTAL 0.6 MG/DL (0.2-1.0); BLOOD UREA NITROGEN 21 MG/DL (7-18); CALCIUM LEVEL 9.6 MG/DL (8.8-10.2); CARBON DIOXIDE LEVEL 28 MEQ/L (21-32); CHLORIDE LEVEL 106 MEQ/L (98-107); CHOLESTEROL LEVEL 200 MG/DL (<200); CHOLESTEROL RISK RATIO 2.816 (<5); CREATININE FOR GFR 0.74 MG/DL (0.55-1.30); GLOMERULAR FILTRATION RATE > 60.0 (>39); GLUCOSE, FASTING 96 MG/DL (70-100); HDL CHOLESTEROL 71 MG/DL (>40); HEMOGLOBIN A1c 5.3 %; LDL CHOLESTEROL 114 MG/DL (<100); NON-HDL-C 129 MG/DL; POTASSIUM SERUM 4.6 MEQ/L (3.5-5.1); SODIUM LEVEL 141 MEQ/L (136-145); TOTAL PROTEIN 6.7 GM/DL (6.4-8.2); TRIGLYCERIDES LEVEL 77 MG/DL (<150)
== END ==
LOC: M SFHCPLAZ 11:02
PROVIDERS: ATTEND Internal Medicine
DX: I10 Essential (primary) hypertension (principal); R73.01 Impaired fasting glucose; E78.00 Pure hypercholesterolemia, unspecified

== ENCOUNTER → 2020-09-27 | Outpatient (REF) | payer MEDICARE ==
[2020-09-27 13:29] LABS: BASO % 0.5 % (0.0-1.0); EOS # 0.1 10^3/uL (0.0-0.5); EOS % 1.4 % (0.0-3.0); HEMATOCRIT 41.8 % (36.0-47.0); HEMOGLOBIN 13.4 g/dl (12.0-15.5); LYMPH # 3.9 10^3/uL (1.5-5.0); LYMPH % 50.8 % (24.0-44.0); MEAN CORPUSCULAR HEMOGLOBIN 31.4 pg (27.0-33.0); MEAN CORPUSCULAR HGB CONC 32.1 g/dl (32.0-36.5); MEAN CORPUSCULAR VOLUME 97.9 fl (80.0-96.0); MONO # 0.5 10^3/uL (0.0-0.8); MONO % 6.5 % (2.0-8.0); NEUTROPHILS # 3.1 10^3/uL (1.5-8.5); NEUTROPHILS % 40.5 % (36.0-66.0); PLATELET COUNT, AUTOMATED 240 10^3/uL (150-450); RED BLOOD COUNT 4.27 10^6/uL (4.00-5.40); WHITE BLOOD COUNT 7.7 10^3/uL (4.0-10.0)
[2020-09-27 14:08] LABS: ALBUMIN 3.8 GM/DL (3.2-5.2); ALT/SGPT 20 U/L (12-78); BILIRUBIN,TOTAL 0.7 MG/DL (0.2-1.0); BLOOD UREA NITROGEN 16 MG/DL (7-18); CALCIUM LEVEL 9.5 MG/DL (8.8-10.2); CARBON DIOXIDE LEVEL 25 MEQ/L (21-32); CHLORIDE LEVEL 109 MEQ/L (98-107); CHOLESTEROL LEVEL 181 MG/DL (<200); CHOLESTEROL RISK RATIO 2.585 (<5); CREATININE FOR GFR 0.72 MG/DL (0.55-1.30); GLOMERULAR FILTRATION RATE > 60.0 (>39); GLUCOSE, FASTING 100 MG/DL (70-100); HDL CHOLESTEROL 70 MG/DL (>40); LDL CHOLESTEROL 96 MG/DL (<100); MAGNESIUM LEVEL 1.9 MG/DL (1.8-2.4); NON-HDL-C 111 MG/DL; POTASSIUM SERUM 4.1 MEQ/L (3.5-5.1); SODIUM LEVEL 141 MEQ/L (136-145); TOTAL PROTEIN 6.4 GM/DL (6.4-8.2); TRIGLYCERIDES LEVEL 76 MG/DL (<150)
[2020-09-27 14:21] LABS: HEMOGLOBIN A1c 5.1 %
== END ==
LOC: M PLALAB 09:15
PROVIDERS: ATTEND Internal Medicine
DX: R73.01 Impaired fasting glucose (principal); I10 Essential (primary) hypertension; D49.81 Neoplasm of unspecified behavior of retina and choroid; E78.00 Pure hypercholesterolemia, unspecified

== ENCOUNTER → 2021-03-08 | Outpatient (CLI) | payer MEDICARE ==
[2021-03-08 15:39] LABS: APPEARANCE, URINE CLOUDY (CLEAR); BACTERIA, URINE AUTO 1+ (NEGATIVE); BILIRUBIN, URINE AUTO NEGATIVE (NEGATIVE); BLOOD, URINE BLOOD 3+ (NEGATIVE); COLOR, URINE YELLOW (YELLOW); GLUCOSE, URINE (UA) AUTO NEGATIVE (NEGATIVE); KETONE, URINE AUTO NEGATIVE (NEGATIVE); LEUKOCYTE ESTERASE, URINE AUTO 2+ (NEGATIVE); MUCUS, URINE SMALL (NEGATIVE); NITRITE, URINE AUTO NEGATIVE (NEGATIVE); PROTEIN, URINE AUTO 2+ mg/dL (NEGATIVE); RBC, URINE AUTO 32 /HPF (0-3); SPECIFIC GRAVITY URINE AUTO 1.005 (1.002-1.035); SQUAMOUS EPITHELIAL CELL UR AU 4 /HPF (0-6); UROBILINOGEN, URINE AUTO 0.2 mg/dL (0.0-2.0); WBC, URINE AUTO 147 /HPF (0-3)
== END ==
LOC: M PLALAB 13:35
PROVIDERS: ATTEND Internal Medicine
DX: R30.0 Dysuria (principal); R31.9 Hematuria, unspecified

== ENCOUNTER → 2021-03-10 | Outpatient (CLI) | payer MEDICARE ==
[2021-03-10 13:38] LABS: ALBUMIN 4.2 GM/DL (3.2-5.2); ALT/SGPT 24 U/L (12-78); BILIRUBIN,TOTAL 0.6 MG/DL (0.2-1.0); BLOOD UREA NITROGEN 18 MG/DL (7-18); CALCIUM LEVEL 10.1 MG/DL (8.8-10.2); CARBON DIOXIDE LEVEL 27 MEQ/L (21-32); CHLORIDE LEVEL 108 MEQ/L (98-107); CREATININE FOR GFR 0.87 MG/DL (0.55-1.30); GLOMERULAR FILTRATION RATE > 60.0 (>39); GLUCOSE, FASTING 108 MG/DL (70-100); MAGNESIUM LEVEL 2.2 MG/DL (1.8-2.4); SODIUM LEVEL 140 MEQ/L (136-145); TOTAL PROTEIN 6.8 GM/DL (6.4-8.2)
== END ==
LOC: M PLALAB 10:14
PROVIDERS: ATTEND Internal Medicine
DX: I10 Essential (primary) hypertension (principal)

== ENCOUNTER → 2021-03-21 | Outpatient (CLI) | payer MEDICARE ==
--- NOTE | 2021-03-21 12:33 | REP ---
INDICATION: [facility] SCREEN MAMMO FOR MALIGNANT NEOPLASM FOR BREAST. COMPARISON: 03/18/2020 as well as multiple other prior exams. TECHNIQUE: MLO and CC views bilateral breasts with tomosynthesis. FINDINGS: Heterogeneously dense fibroglandular tissue is present bilaterally. There is a possible 8 mm nodule in the left retroareolar region 2-3 cm behind the nipple. Otherwise no change is seen when compared to prior study. No other mass or clustered microcalcifications are seen. The Volpara volumetric breast density pattern is B. IMPRESSION: BIRADS/ACR category 0, incomplete. Possible 8 mm nodule in the left retroareolar region. Recommend spot compression views and ultrasound to further evaluate. This patient's Tyrer-Cuzick lifetime breast cancer risk assessment score is 9.1%. This mammogram was interpreted with the aid of an FDA-approved computer-aided detection system. The patient states she had a clinical breast exam in over 1 year ago. The patient letter being requested is M0. RECOMMENDATION: Recommend spot compression views and ultrasound left breast. <Electronically signed by Jeremy Rodriguez > 03/21/21 [id number]
== END ==
LOC: M WHC 10:29
PROVIDERS: ATTEND Internal Medicine
DX: R92.2 Inconclusive mammogram (principal)

== ENCOUNTER → 2021-03-23 | Outpatient (CLI) | payer MEDICARE ==
--- NOTE | 2021-03-23 13:19 | REP ---
INDICATION: LEFT BREAST ADD VIEWS. COMPARISON: 03/21/2021 as well as multiple other prior exams. TECHNIQUE: Multiple spot compression tomographic images are obtained. FINDINGS: The suspected possible subcentimeter nodular opacity in the left retroareolar region does not persist on additional spot compression views. There is no change when compared to more remote exams. IMPRESSION: BIRADS/ACR category 1, negative. No persistent nodule on today's additional views. This mammogram was interpreted with the aid of an FDA-approved computer-aided detection system. The patient letter being requested is M 1. RECOMMENDATION: Repeat screening mammography recommended 1 year (for women over 40). <Electronically signed by Jeremy Rodriguez > 03/23/21 [id number]
== END ==
LOC: M WHC 12:37
PROVIDERS: ATTEND Internal Medicine
DX: Z12.31 Encounter for screening mammogram for malignant neoplasm of breast (principal)
CPT/HCPCS: 77065; G0279

== ENCOUNTER → 2021-10-07 | Outpatient (CLI) | payer MEDICARE ==
[~2021-10-07] MED LIST changes: -ACET1TAB16 PO; +ACET300T48 PO; +LOSA100T45 PO; -LOSA100T50 PO
[2021-10-07 12:17] LABS: BASO % 0.4 % (0.0-1.0); EOS # 0.1 10^3/uL (0.0-0.5); EOS % 1.6 % (0.0-3.0); HEMATOCRIT 40.8 % (36.0-47.0); HEMOGLOBIN 13.4 g/dl (12.0-15.5); LYMPH # 3.5 10^3/uL (1.5-5.0); LYMPH % 50.8 % (24.0-44.0); MEAN CORPUSCULAR HEMOGLOBIN 32.1 pg (27.0-33.0); MEAN CORPUSCULAR HGB CONC 32.8 g/dl (32.0-36.5); MEAN CORPUSCULAR VOLUME 97.8 fl (80.0-96.0); MONO # 0.5 10^3/uL (0.0-0.8); MONO % 7.4 % (2.0-8.0); NEUTROPHILS # 2.7 10^3/uL (1.5-8.5); NEUTROPHILS % 39.7 % (36.0-66.0); PLATELET COUNT, AUTOMATED 226 10^3/uL (150-450); RED BLOOD COUNT 4.17 10^6/uL (4.00-5.40); WHITE BLOOD COUNT 6.8 10^3/uL (4.0-10.0)
[2021-10-07 12:41] LABS: ALBUMIN 3.9 GM/DL (3.2-5.2); ALT/SGPT 20 U/L (12-78); BILIRUBIN,TOTAL 0.6 MG/DL (0.2-1.0); BLOOD UREA NITROGEN 18 MG/DL (7-18); CALCIUM LEVEL 9.2 MG/DL (8.8-10.2); CARBON DIOXIDE LEVEL 29 MEQ/L (21-32); CHLORIDE LEVEL 109 MEQ/L (98-107); CHOLESTEROL LEVEL 193 MG/DL (<200); CHOLESTEROL RISK RATIO 2.412 (<5); CREATININE FOR GFR 0.82 MG/DL (0.55-1.30); GLOMERULAR FILTRATION RATE > 60.0 (>39); GLUCOSE, FASTING 100 MG/DL (70-100); HDL CHOLESTEROL 80 MG/DL (>40); LDL CHOLESTEROL 101 MG/DL (<100); NON-HDL-C 113 MG/DL; SODIUM LEVEL 140 MEQ/L (136-145); TOTAL PROTEIN 6.3 GM/DL (6.4-8.2); TRIGLYCERIDES LEVEL 59 MG/DL (<150)
[2021-10-07 15:13] LABS: HEMOGLOBIN A1c 5.3 %
== END ==
LOC: M PLALAB 10:00
PROVIDERS: ATTEND Internal Medicine
DX: E78.00 Pure hypercholesterolemia, unspecified (principal); R73.01 Impaired fasting glucose; I10 Essential (primary) hypertension

== ENCOUNTER 2022-03-12 10:42 | Emergency (ER) | payer MEDICARE ==
[~2022-03-12] VITALS: Ht 157.5 cm; Wt 64.9 kg
[~2022-03-12 10:42] MED LIST changes: -CO Q400C2 PO; +CVS400CA10 PO
[2022-03-12 11:33] LABS: BASO % 0.2 % (0.0-1.0); EOS % 0.1 % (0.0-3.0); HEMATOCRIT 39.3 % (36.0-47.0); HEMOGLOBIN 12.9 g/dl (12.0-15.5); LYMPH # 3.1 10^3/uL (1.5-5.0); LYMPH % 18.4 % (24.0-44.0); MEAN CORPUSCULAR HEMOGLOBIN 31.2 pg (27.0-33.0); MEAN CORPUSCULAR HGB CONC 32.8 g/dl (32.0-36.5); MEAN CORPUSCULAR VOLUME 95.2 fl (80.0-96.0); MONO # 1.3 10^3/uL (0.0-0.8); MONO % 7.6 % (2.0-8.0); NEUTROPHILS # 12.4 10^3/uL (1.5-8.5); NEUTROPHILS % 73.2 % (36.0-66.0); PLATELET COUNT, AUTOMATED 200 10^3/uL (150-450); RED BLOOD COUNT 4.13 10^6/uL (4.00-5.40); WHITE BLOOD COUNT 16.9 10^3/uL (4.0-10.0)
[2022-03-12 11:42] LABS: INR 0.93; PROTHROMBIN TIME 12.7 SECONDS (12.5-14.5)
[2022-03-12 12:12] LABS: CK-MB VALUE MASS < 1.0 NG/ML (<3.6); CPK CREATINE PHOSPHOKINASE 48 U/L (26-192); MB/CK RELATIVE INDEX 2.08 (< OR =4)
[2022-03-12 12:20] LABS: BLOOD UREA NITROGEN 13 MG/DL (7-18); CALCIUM LEVEL 9.4 MG/DL (8.8-10.2); CARBON DIOXIDE LEVEL 25 MEQ/L (21-32); CHLORIDE LEVEL 103 MEQ/L (98-107); CREATININE FOR GFR 0.76 MG/DL (0.55-1.30); GLOMERULAR FILTRATION RATE > 60.0 (>39); GLUCOSE, FASTING 134 MG/DL (70-100); SODIUM LEVEL 135 MEQ/L (136-145)
[2022-03-12] MEDS ORDERED: METO1TAB87 PO (14:09)
[2022-03-12 14:45] VITALS: BP 147/70
== END 2022-03-12 15:04 | disposition home or self-care (01) ==
LOC: M ED 10:42
DX: I49.1 Atrial premature depolarization (principal); R00.2 Palpitations; R00.0 Tachycardia, unspecified; I10 Essential (primary) hypertension; E78.5 Hyperlipidemia, unspecified; Z90.89 Acquired absence of other organs; F17.200 Nicotine dependence, unspecified, uncomplicated; Z88.5 Allergy status to narcotic agent; Z88.8 Allergy status to other drugs, medicaments and biological substances; Z91.048 Other nonmedicinal substance allergy status; Z79.899 Other long term (current) drug therapy

== ENCOUNTER → 2022-03-24 | Outpatient (CLI) | payer MEDICARE ==
[~2022-03-24] MED LIST changes: +METO1TAB87 PO
== END ==
LOC: M WHC 07:11
PROVIDERS: ATTEND Internal Medicine Hematology
DX: Z12.31 Encounter for screening mammogram for malignant neoplasm of breast (principal)

== ENCOUNTER → 2022-10-03 | Outpatient (CLI) | payer MEDICARE ==
[~2022-10-03] MED LIST changes: -LOSA100T45 PO; +LOSA100T46 PO
[2022-10-03 15:04] LABS: HEMATOCRIT 41.3 % (36.0-47.0); HEMOGLOBIN 13.4 g/dl (12.0-15.5); MEAN CORPUSCULAR HEMOGLOBIN 31.9 pg (27.0-33.0); MEAN CORPUSCULAR HGB CONC 32.4 g/dl (32.0-36.5); MEAN CORPUSCULAR VOLUME 98.3 fl (80.0-96.0); PLATELET COUNT, AUTOMATED 226 10^3/uL (150-450); WHITE BLOOD COUNT 8.1 10^3/uL (4.0-10.0)
[2022-10-03 15:26] LABS: HEMOGLOBIN A1c 5.4 % (4.0-6.0)
[2022-10-03 15:34] LABS: ALKALINE PHOSPHATASE 63 U/L (46-116); ALT/SGPT 17 U/L (7.0-40); AST/SGOT 18 U/L (<34); BILIRUBIN,TOTAL 0.7 MG/DL (0.3-1.2); BLOOD UREA NITROGEN 20 MG/DL (9-23); CALCIUM LEVEL 9.3 MG/DL (8.3-10.6); CARBON DIOXIDE LEVEL 31 MMOL/L (20-31); CHLORIDE LEVEL 107 MMOL/L (98-107); CHOLESTEROL LEVEL 188 MG/DL (<200); CHOLESTEROL RISK RATIO 2.72 (<5); CREATININE FOR GFR 0.81 MG/DL (0.55-1.30); GLOMERULAR FILTRATION RATE > 60.0 (>39); GLUCOSE, FASTING 85 MG/DL (74-106); LDL CHOLESTEROL 100.6 MG/DL (<100); POTASSIUM SERUM 4.5 MMOL/L (3.5-5.1); SODIUM LEVEL 141 MMOL/L (136-145); TOTAL PROTEIN 6.2 G/DL (5.7-8.2); TRIGLYCERIDES LEVEL 92 MG/DL (<150)
[2022-10-03 15:38] LABS: CREATININE, URINE 140.2 MG/DL
[2022-10-03 15:39] LABS: FREE T4 0.98 NG/DL (0.89-1.76); THYROID STIMULATING HORMONE 2.182 uIU/ML (0.55-4.78)
[2022-10-03 15:40] LABS: C REACTIVE PROTEIN QUANTITATIV < 0.40 MG/DL (<1.0); MAU/CREAT RATIO 2.8 MCG/MG (0.0-30.0)
[2022-10-03 15:42] LABS: TOTAL 25(OH) VITAMIN D 56.6 NG/ML (20.0-100.0)
[2022-10-03 15:43] LABS: VITAMIN B12 LEVEL 306 PG/ML (211-911)
== END ==
LOC: M PLALAB 09:41
PROVIDERS: ATTEND Internal Medicine Hematology
DX: E78.00 Pure hypercholesterolemia, unspecified (principal); Z79.899 Other long term (current) drug therapy

== ENCOUNTER → 2023-03-07 | Outpatient (CLI) | payer MEDICARE ==
[2023-03-07 14:04] LABS: HEMATOCRIT 39.2 % (36.0-47.0); HEMOGLOBIN 12.9 g/dl (12.0-15.5); MEAN CORPUSCULAR HGB CONC 32.9 g/dl (32.0-36.5); MEAN CORPUSCULAR VOLUME 97.3 fl (80.0-96.0); PLATELET COUNT, AUTOMATED 271 10^3/uL (150-450); RED BLOOD COUNT 4.03 10^6/uL (4.00-5.40); WHITE BLOOD COUNT 7.7 10^3/uL (4.0-10.0)
[2023-03-07 14:05] LABS: CREATININE, URINE 166.6 MG/DL
[2023-03-07 14:06] LABS: MAU/CREAT RATIO 5.4 MCG/MG (0.0-30.0)
[2023-03-07 14:07] LABS: C REACTIVE PROTEIN QUANTITATIV < 0.40 MG/DL (<1.0)
[2023-03-07 14:11] LABS: ALBUMIN 3.8 G/DL (3.2-5.2); ALKALINE PHOSPHATASE 72 U/L (46-116); ALT/SGPT 16 U/L (7.0-40); AST/SGOT 18 U/L (<34); BILIRUBIN,TOTAL 0.5 MG/DL (0.3-1.2); BLOOD UREA NITROGEN 19 MG/DL (9-23); CALCIUM LEVEL 9.5 MG/DL (8.3-10.6); CARBON DIOXIDE LEVEL 29 MMOL/L (20-31); CHLORIDE LEVEL 106 MMOL/L (98-107); CHOLESTEROL LEVEL 180 MG/DL (<200); CHOLESTEROL RISK RATIO 2.87 (<5); CREATININE FOR GFR 0.75 MG/DL (0.55-1.30); FREE T4 1.03 NG/DL (0.89-1.76); GLOMERULAR FILTRATION RATE > 60.0 (>39); GLUCOSE, FASTING 97 MG/DL (74-106); HDL CHOLESTEROL 62.7 MG/DL (>40); LDL CHOLESTEROL 105.7 MG/DL (<100); NON-HDL-C 117.3 MG/DL; POTASSIUM SERUM 4.7 MMOL/L (3.5-5.1); SODIUM LEVEL 141 MMOL/L (136-145); THYROID STIMULATING HORMONE 3.111 uIU/ML (0.55-4.78); TOTAL 25(OH) VITAMIN D 56.3 NG/ML (20.0-100.0); TOTAL PROTEIN 6.2 G/DL (5.7-8.2); TRIGLYCERIDES LEVEL 58 MG/DL (<150); VITAMIN B12 LEVEL 518 PG/ML (211-911)
[2023-03-07 14:57] LABS: HEMOGLOBIN A1c 5.5 % (4.0-6.0)
== END ==
LOC: M PLALAB 10:00
PROVIDERS: ATTEND Internal Medicine Hematology
DX: I10 Essential (primary) hypertension (principal)

== ENCOUNTER → 2023-03-26 | Outpatient (CLI) | payer MEDICARE | LOC: M WHC 07:44 | PROVIDERS: ATTEND Internal Medicine Hematology | DX: Z12.31 Encounter for screening mammogram for malignant neoplasm of breast (principal); Z13.820 Encounter for screening for osteoporosis; M85.88 Other specified disorders of bone density and structure, other site ==

== ENCOUNTER → 2023-10-03 | Outpatient (CLI) | payer MEDICARE ==
[2023-10-03 13:14] LABS: HEMATOCRIT 40.1 % (36.0-47.0); HEMOGLOBIN 13.1 g/dl (12.0-15.5); MEAN CORPUSCULAR HEMOGLOBIN 31.6 pg (27.0-33.0); MEAN CORPUSCULAR HGB CONC 32.7 g/dl (32.0-36.5); MEAN CORPUSCULAR VOLUME 96.6 fl (80.0-96.0); PLATELET COUNT, AUTOMATED 197 10^3/uL (150-450); RED BLOOD COUNT 4.15 10^6/uL (4.00-5.40); WHITE BLOOD COUNT 7.9 10^3/uL (4.0-10.0)
[2023-10-03 15:07] LABS: C REACTIVE PROTEIN QUANTITATIV < 0.40 MG/DL (<1.0)
[2023-10-03 15:09] LABS: ALKALINE PHOSPHATASE 65 U/L (46-116); ALT/SGPT 20 U/L (7.0-40); AST/SGOT 15 U/L (<34); BILIRUBIN,TOTAL 0.6 MG/DL (0.3-1.2); BLOOD UREA NITROGEN 22 MG/DL (9-23); CALCIUM LEVEL 9.6 MG/DL (8.3-10.6); CARBON DIOXIDE LEVEL 29 MMOL/L (20-31); CHLORIDE LEVEL 108 MMOL/L (98-107); CHOLESTEROL LEVEL 170 MG/DL (<200); CHOLESTEROL RISK RATIO 3.15 (<5); CREATININE FOR GFR 0.84 MG/DL (0.55-1.30); GLOMERULAR FILTRATION RATE > 60.0 (>39); GLUCOSE, FASTING 99 MG/DL (74-106); HDL CHOLESTEROL 53.8 MG/DL (>40); LDL CHOLESTEROL 100.2 MG/DL (<100); NON-HDL-C 116.2 MG/DL; POTASSIUM SERUM 4.7 MMOL/L (3.5-5.1); SODIUM LEVEL 143 MMOL/L (136-145); TOTAL PROTEIN 6.1 G/DL (5.7-8.2); TRIGLYCERIDES LEVEL 80 MG/DL (<150)
[2023-10-03 15:14] LABS: THYROID STIMULATING HORMONE 2.856 uIU/ML (0.55-4.78)
[2023-10-03 15:15] LABS: TOTAL 25(OH) VITAMIN D 42.2 NG/ML (20.0-100.0)
[2023-10-03 15:16] LABS: VITAMIN B12 LEVEL 447 PG/ML (211-911)
[2023-10-03 15:18] LABS: FREE T4 1.02 NG/DL (0.89-1.76)
[2023-10-03 15:32] LABS: CREATININE, URINE 151.8 MG/DL
[2023-10-03 15:33] LABS: MALB URINE SIEMENS < 3.0 MG/L; MAU/CREAT RATIO 1.9 MCG/MG (0.0-30.0)
[2023-10-03 17:14] LABS: HEMOGLOBIN A1c 5.5 % (4.0-6.0)
== END ==
LOC: M PLALAB 10:00
PROVIDERS: ATTEND Internal Medicine Hematology
DX: E78.00 Pure hypercholesterolemia, unspecified (principal); I10 Essential (primary) hypertension; R73.01 Impaired fasting glucose; Z79.899 Other long term (current) drug therapy

== ENCOUNTER → 2024-03-04 | Outpatient (CLI) | payer MEDICARE ==
[2024-03-04 14:01] LABS: HEMATOCRIT 41.3 % (36.0-47.0); HEMOGLOBIN 13.4 g/dl (12.0-15.5); MEAN CORPUSCULAR HEMOGLOBIN 30.8 pg (27.0-33.0); MEAN CORPUSCULAR HGB CONC 32.4 g/dl (32.0-36.5); MEAN CORPUSCULAR VOLUME 94.9 fl (80.0-96.0); PLATELET COUNT, AUTOMATED 224 10^3/uL (150-450); RED BLOOD COUNT 4.35 10^6/uL (4.00-5.40); WHITE BLOOD COUNT 8.4 10^3/uL (4.0-10.0)
[2024-03-04 14:22] LABS: C REACTIVE PROTEIN QUANTITATIV < 0.40 MG/DL (<1.0)
[2024-03-04 14:24] LABS: ALBUMIN 4.1 G/DL (3.2-5.2); ALKALINE PHOSPHATASE 71 U/L (46-116); ALT/SGPT 15 U/L (7.0-40); AST/SGOT 12 U/L (<34); BILIRUBIN,TOTAL 0.6 MG/DL (0.3-1.2); BLOOD UREA NITROGEN 21 MG/DL (9-23); CARBON DIOXIDE LEVEL 28 MMOL/L (20-31); CHLORIDE LEVEL 107 MMOL/L (98-107); CHOLESTEROL LEVEL 227 MG/DL (<200); CHOLESTEROL RISK RATIO 3.39 (<5); CREATININE FOR GFR 0.78 MG/DL (0.55-1.30); GLOMERULAR FILTRATION RATE > 60.0 (>39); GLUCOSE, FASTING 102 MG/DL (74-106); HDL CHOLESTEROL 66.8 MG/DL (>40); LDL CHOLESTEROL 136.2 MG/DL (<100); NON-HDL-C 160.2 MG/DL; POTASSIUM SERUM 4.9 MMOL/L (3.5-5.1); SODIUM LEVEL 139 MMOL/L (136-145); THYROID STIMULATING HORMONE 3.947 uIU/ML (0.55-4.78); TOTAL PROTEIN 6.9 G/DL (5.7-8.2); TRIGLYCERIDES LEVEL 120 MG/DL (<150)
[2024-03-04 14:25] LABS: FREE T4 1.34 NG/DL (0.89-1.76); TOTAL 25(OH) VITAMIN D 46.5 NG/ML (20.0-100.0); VITAMIN B12 LEVEL 412 PG/ML (211-911)
[2024-03-04 16:20] LABS: CREATININE, URINE 130.6 MG/DL; MAU/CREAT RATIO 5.3 MCG/MG (0.0-30.0)
[2024-03-04 17:13] LABS: HEMOGLOBIN A1c 5.6 % (4.0-6.0)
== END ==
LOC: M PLALAB 09:24
PROVIDERS: ATTEND Internal Medicine Hematology
DX: E78.00 Pure hypercholesterolemia, unspecified (principal); Z79.899 Other long term (current) drug therapy

== ENCOUNTER → 2024-09-25 | Outpatient (REF) | payer MEDICARE ==
[2024-09-25 14:57] LABS: EOSINOPHILS 1 % (0-3); LYMPHOCYTES 37 % (16-44); MONOCYTES 4 % (0-5); NEUTROPHILS 58 % (28-66); PLATELET ESTIMATE NORMAL (NORMAL)
== END ==
LOC: M LAB REF 13:27
PROVIDERS: ATTEND Internal Medicine
DX: D72.829 Elevated white blood cell count, unspecified (principal)